=== PATIENT | female | born 2000 | race Caucasian/White ===

== ENCOUNTER 2020-04-02 15:45 | Emergency (ER) | payer OTHER ==
[2020-04-02 16:12] VITALS: BP 114/72
--- NOTE | 2020-04-02 16:34 | ED Physician Documentation ---
PD HPI HEENT - Stated complaint Stated Complaint: EAR PX LFT - Chief complaint Chief Complaint: Heent - History obtained from History obtained from: Patient - History of Present Illness Timing - onset: How many days ago (2) Timing - duration: Days (2) Timing - details: Abrupt onset, Still present Location: Left ear (has had some pain in left ear canal at times and uses OTC ear drops and feels better. Now 2 days of some pain behind left ear and starting on left side of neck as well. No rash.) Associated symptoms: Headache (left side with some headache around ear. No difffuse headache.). No: Fever, Congestion, Facial swelling Similar symptoms before: Has not had sx before Review of Systems Constitutional: denies: Fever, Chills, Myalgias Ears: reports: Ear pain. denies: Loss of hearing, Drainage/discharge Nose: denies: Rhinorrhea / runny nose, Congestion Throat: denies: Sore throat Respiratory: denies: Cough Musculoskeletal: denies: Neck pain Neurologic: denies: Confused, Altered mental status PD PAST MEDICAL HISTORY - Past Medical History Past Medical History: No - Present Medications Home Medications: Ambulatory Orders Medication Instructions Recorded Confirmed Cephalexin [Keflex] 500 mg PO TID 6 Days #18 capsule 04/02/20 Ibuprofen [Motrin] 600 mg PO TID PRN #20 tab 04/02/20 - Allergies Allergies/Adverse Reactions: Allergies Allergy/AdvReac Type Severity Reaction Status Date / Time No Known Drug Allergies Allergy Verified 04/02/20 16:12 PD ED PE NORMAL - Vitals Vital signs reviewed: Yes - General General: Alert and oriented X 3, No acute distress, Well developed/nourished - HEENT HEENT: Moist mucous membranes, Pharynx benign. No: Ears normal (right eatr normal; left ear TM is good. The canal has mild area of redness about 1/[address] in without notable swelling nor erosion. The postauricular area on left has small node as does the left neck along SCM line, small tender node. No redness of the mastoid area per se. ) - Neck Neck: Supple, no meningeal sign - Cardiac Cardiac: RRR, No murmur - Respiratory Respiratory: Clear bilaterally - Derm Derm: Normal color, Warm and dry, No rash Results - Vitals Vitals: Vital Signs - 24 hr 04/02/20 16:06 Temperature 36.9 C Heart Rate 76 Respiratory 18 Rate Blood Pressure 114/72 O2 Saturation 99 Oxygen O2 Source Room air PD MEDICAL DECISION MAKING - ED course Complexity details: considered differential (seems ear canal cellulitis with tender nodes left postauricular and neck. ), d/w patient Departure - Departure Disposition: 01 Home, Self Care Clinical Impression: Adenitis, Lymphadenopathy, postauricular Condition: Stable Record reviewed to determine appropriate education?: Yes Instructions: ED Cervical Adenitis Abx Tx Follow-Up: MARYJO Olmoscaterina Roche [Provider Group] Prescriptions: Cephalexin [Keflex] 500 mg PO TID 6 Days #18 capsule Ibuprofen [Motrin] 600 mg PO TID PRN #20 tab PRN Reason: Pain Comments: You seem to have tenderness of small lymph nodes in the neck and behind the ear. Presume there is a mild skin infection in the ear canal causing this. We will treated with antibiotics and anti-inflammatories. In addition use some warm moist compresses or towels around the ear periodically for the next couple of days. I would anticipate improvement in this over the next 2 to 3 days. Recheck if not improved or worsening. Discharge Date/Time: 04/02/20 17:00
[2020-04-02] MEDS ORDERED: cephALEXin 250 MG CAPSULE PO STA (16:44)
[2020-04-02] MEDS ORDERED: IBUPROFEN 600 MG TABLET PO STA (16:44)
[2020-04-02] MEDS ORDERED: ACETAMINOPHEN 325 MG TABLET PO STA (16:44)
== END 2020-04-02 17:00 | disposition home or self-care (01) ==
LOC: ED 15:45
DX: I88.9 Nonspecific lymphadenitis, unspecified (principal); H70.812 Postauricular fistula, left ear
CPT/HCPCS: 99282; 99284; A9270